=== PATIENT | male | born 1975 | race Caucasian/White ===

== ENCOUNTER 2019-07-05 11:12 | Emergency (ER) | payer BC ==
[~2019-07-05] VITALS: Ht 182.9 cm; Wt 81.8 kg
[2019-07-05 12:25] LABS: BASO # 0.1 (0.02-0.10); EOS # 0.2 (0.04-0.40); EOS % 2.2 % (0.0-4.0); HEMATOCRIT 43.8 % (42.0-52.0); HEMOGLOBIN 14.2 g/dL (13.5-18.0); LYMPH# 1.5 (1.50-4.00); MEAN CELL VOLUME 92 fl (78-100); MEAN CORPUSCULAR HEMOGLOBIN 30 pg (27-31); MEAN CORPUSCULAR HGB CONC 32 g/dL (33-37); MEAN PLATELET VOLUME 8.7 fl (7.4-10.4); MONO # 0.6 (0.20-0.80); NEU # 4.3 (1.40-6.50); PLATELET COUNT 402 K/mm3 (130-400); RED BLOOD COUNT 4.78 M/mm3 (4.20-5.60); RED CELL DISTRIBUTION WIDTH 13.3 % (11.5-14.5); WHITE BLOOD COUNT 6.7 K/mm3 (4.8-10.8)
[2019-07-05 12:37] LABS: ALBUMIN 3.8 g/dL (3.5-5.0); POTASSIUM 3.9 mmol/L (3.5-5.1)
[2019-07-05 12:38] LABS: CALCIUM 8.5 mg/dL (8.3-10.5)
[2019-07-05 12:39] LABS: TOTAL PROTEIN 6.6 g/dL (6.4-8.3)
[2019-07-05 12:41] LABS: TOTAL BILIRUBIN 0.3 mg/dL (0.2-1.2)
[2019-07-05] MEDS ORDERED: ONDANSETRON ODT8 MG PO (14:01)
[2019-07-05 14:16] VITALS: BP 142/63
== END 2019-07-05 14:16 | disposition home or self-care (01) ==
LOC: ED 11:12
PROVIDERS: Nurse Practitioner Family
DX: R11.2 Nausea with vomiting, unspecified (principal); R19.7 Diarrhea, unspecified; F17.210 Nicotine dependence, cigarettes, uncomplicated
CPT/HCPCS: J2405; J7030

== ENCOUNTER → 2022-05-21 | Outpatient (CLI) | payer BC ==
[~2022-05-21] MED LIST: ONDANSETRON ODT8 MG PO; SERTRALINE HYD100 MG PO
== END ==
LOC: RAD 09:48
DX: M25.511 Pain in right shoulder (principal)

== ENCOUNTER 2022-06-04 09:48 | Outpatient (RCR) | payer BC | END 2022-06-20 | disposition home or self-care (01) | LOC: PT | DX: M25.511 Pain in right shoulder (principal) ==